=== PATIENT | male | born 1975 | race African-American/Black ===

== ENCOUNTER 2024-06-03 07:45 | Inpatient (IN) | payer OTHER ==
[~2024-06-03] VITALS: Ht 170.2 cm; Wt 68.2 kg
[2024-06-03] MEDS: ONDANSETRON 4 MG TABLET PO ONE (08:23)
[2024-06-03] MEDS: ACETAMINOPHEN 500 MG TABLET PO ONE (08:23)
[2024-06-03 08:35] LABS: BASOPHILS % (AUTO) 1.3 % (0.0-2.0); EOSINOPHILS % (AUTO) 3.8 % (1.0-6.0); HEMATOCRIT 42.5 % (41-53); HEMOGLOBIN 14.2 g/dL (13.5-17.5); LYMPHOCYTES # (AUTO) 1.2 K/uL (1.0-4.8); LYMPHOCYTES % (AUTO) 28.3 % (22.0-44.0); MEAN CORPUSCULAR HEMOGLOBIN 30.8 pg (26.0-34.0); MEAN CORPUSCULAR HGB CONC 33.5 G/dL (31.0-37.0); MEAN CORPUSCULAR VOLUME 92 fL (80-100); MONOCYTES # (AUTO) 0.4 K/uL (0.1-1.0); MONOCYTES % (AUTO) 10.3 % (2.0-9.0); NEUTROPHILS # (AUTO) 2.3 K/uL (1.8-7.7); NEUTROPHILS % (AUTO) 56.3 % (40.0-70.0); PLATELET COUNT (AUTO) 241 K/uL (150-450); RED BLOOD CELL COUNT(AUTO) 4.62 MIL/uL (4.50-5.90); RED CELL DISTRIBUTION WIDTH 14.1 % (11.5-14.5); WHITE BLOOD COUNT (AUTO) 4.1 K/uL (4.5-11.0)
[2024-06-03 08:54] LABS: ANION GAP 8 mmol/L (8-16); CALCIUM, TOTAL 9.1 mg/dL (8.8-10.5); CARBON DIOXIDE 28 mmol/L (22-29); CHLORIDE 105 mmol/L (98-107); CREATININE 0.93 mg/dL (0.60-1.30); GLOMERULAR FILTR. RATE CALC > 60 mL/min (>60); GLUCOSE,RANDOM 86 mg/dL (70-110); SODIUM SERUM 141 mmol/L (136-145); UREA NITROGEN, BLOOD 12 mg/dL (7-18)
[2024-06-03 08:58] LABS: ALANINE AMINOTRANSFERASE 18 U/L (12-78); ALBUMIN 3.5 g/dL (3.4-5.0); ALKALINE PHOSPHATASE 51 U/L (46-116); ASPARTATE AMINOTRANSFERASE 21 U/L (15-37); BILIRUBIN,TOTAL 0.4 mg/dL (0.1-1.0); TOTAL PROTEIN, SERUM 6.6 g/dL (6.4-8.2)
[2024-06-03 08:59] LABS: ALCOHOL, BLOOD (SERUM) < 3 mg/dL (0-10)
[2024-06-03] MEDS ORDERED: ONDANSETRON HCL 4 MG/2 ML VIAL IVP PRN (11:15)
[2024-06-03] MEDS ORDERED: ACETAMINOPHEN 325 MG TABLET PO PRN (11:15)
[2024-06-03 11:30] VITALS: BP 125/78; PULSE 100; RESP 18; TEMP 97.5; O2SAT 100
[2024-06-03] MEDS: VANCOMYCIN 1.25 GM/WATER(PEG) 250 ML IV ONE (12:38)
[2024-06-03] MEDS: HEPARIN SODIUM,PORCINE 5,000 UNITS/ML VIAL SQ SCH (16:11)
[2024-06-03 18:51] LABS: PH,URINE DRUG SCREEN 6.5 (5.0-8.0)
[2024-06-03 18:59] LABS: ALCOHOL, URINE DRUG SCREEN NEGATIVE (NEGATIVE); AMPHET/METH SCREEN,URINE POSITIVE (NEGATIVE); BARBITURATE SCREEN, URINE NEGATIVE (NEGATIVE); BENZODIAZEPINES SCREEN,URINE NEGATIVE (NEGATIVE); CANNABINOID SCREEN,URINE POSITIVE (NEGATIVE); COCAINE SCREEN,URINE NEGATIVE (NEGATIVE); METHADONE SCREEN, URINE NEGATIVE (NEGATIVE); OPIATE SCREEN,URINE NEGATIVE (NEGATIVE); PHENCYCLIDINE SCREEN,URINE NEGATIVE (NEGATIVE)
[2024-06-03 20:28] VITALS: BP 129/71; PULSE 80; RESP 17; TEMP 98.4; O2SAT 98
[2024-06-03] MEDS: HydrOXYzine PAMOATE 25 MG CAPSULE PO SCH (20:34)
[2024-06-03] MEDS: VANCOMYCIN 1.25 GM/WATER(PEG) 250 ML IV SCH (20:35)
[2024-06-04 07:46] LABS: BASOPHILS % (AUTO) 1.1 % (0.0-2.0); EOSINOPHILS % (AUTO) 3.9 % (1.0-6.0); HEMATOCRIT 42.8 % (41-53); HEMOGLOBIN 14.2 g/dL (13.5-17.5); LYMPHOCYTES % (AUTO) 26.3 % (22.0-44.0); MEAN CORPUSCULAR HEMOGLOBIN 30.6 pg (26.0-34.0); MEAN CORPUSCULAR HGB CONC 33.2 G/dL (31.0-37.0); MEAN CORPUSCULAR VOLUME 92 fL (80-100); MONOCYTES # (AUTO) 0.3 K/uL (0.1-1.0); MONOCYTES % (AUTO) 7.2 % (2.0-9.0); NEUTROPHILS # (AUTO) 2.4 K/uL (1.8-7.7); NEUTROPHILS % (AUTO) 61.5 % (40.0-70.0); PLATELET COUNT (AUTO) 211 K/uL (150-450); RED BLOOD CELL COUNT(AUTO) 4.65 MIL/uL (4.50-5.90); RED CELL DISTRIBUTION WIDTH 14.2 % (11.5-14.5); WHITE BLOOD COUNT (AUTO) 3.9 K/uL (4.5-11.0)
[2024-06-04 07:48] LABS: ANION GAP 10 mmol/L (8-16); CALCIUM, TOTAL 8.7 mg/dL (8.8-10.5); CARBON DIOXIDE 25 mmol/L (22-29); CHLORIDE 104 mmol/L (98-107); CREATININE 0.94 mg/dL (0.60-1.30); GLOMERULAR FILTR. RATE CALC > 60 mL/min (>60); GLUCOSE,RANDOM 81 mg/dL (70-110); POTASSIUM 3.8 mmol/L (3.5-5.1); SODIUM SERUM 139 mmol/L (136-145); UREA NITROGEN, BLOOD 12 mg/dL (7-18)
[2024-06-04 07:49] VITALS: BP 123/76; PULSE 104; RESP 20; TEMP 97.8; O2SAT 96
[2024-06-04] MEDS ORDERED: KETOROLAC TROMETHAMINE 15 MG/ML VIAL IVP PRN ×2 (11:00)
[2024-06-04] MEDS: HydrOXYzine PAMOATE 25 MG CAPSULE PO SCH (13:32)
[2024-06-04] MEDS: GABAPENTIN 100 MG CAPSULE PO SCH (15:06)
[2024-06-04 19:58] VITALS: BP 131/80; PULSE 77; RESP 20; TEMP 98.5; O2SAT 99
[2024-06-05 04:43] VITALS: BP 134/79; PULSE 74; RESP 18; TEMP 98.4; O2SAT 99
[2024-06-05] MEDS: RINGERS SOLUTION,LACTATED 500 ML IV ONE (08:00)
[2024-06-05] MEDS ORDERED: IOHEXOL 350 MG/ML 100 ML VIAL ONE (08:10)
[2024-06-05] MEDS ORDERED: SODIUM CHLORIDE 0.9% 100 ML ONE (08:10)
[2024-06-05 08:11] VITALS: BP 122/79; PULSE 67; RESP 19; TEMP 97.5; O2SAT 100
[2024-06-05] MEDS ORDERED: DOCU-385 PO (16:34)
[2024-06-05] MEDS ORDERED: POLY17PO47 PO (16:35)
[2024-06-05 16:38] VITALS: BP 101/77; PULSE 87; RESP 19; TEMP 97.5; O2SAT 99
[2024-06-05 19:37] VITALS: BP 133/77; PULSE 78; RESP 20; TEMP 99.3; O2SAT 100
== END 2024-06-05 20:45 | DRG 897 ==
LOC: EMS 07:45 → EDH 10:26 → 6S 11:05
PROVIDERS: ADMIT Internal Medicine; ATTEND Internal Medicine
DX: F15.93 Other stimulant use, unspecified with withdrawal (principal); F11.93 Opioid use, unspecified with withdrawal; F10.939 Alcohol use, unspecified with withdrawal, unspecified; Y90.9 Presence of alcohol in blood, level not specified; F17.210 Nicotine dependence, cigarettes, uncomplicated; F31.9 Bipolar disorder, unspecified; I10 Essential (primary) hypertension; E11.9 Type 2 diabetes mellitus without complications; F41.1 Generalized anxiety disorder; Z88.0 Allergy status to penicillin
CPT/HCPCS: 74177; 80048; 80076; 80307; 83735; 85025; 99285; G0480; J1644; J7050; J7120; Q0162

== ENCOUNTER 2024-10-06 17:46 | Inpatient (IN) | payer OTHER ==
[~2024-10-06] VITALS: Ht 170.2 cm; Wt 72.0 kg
[~2024-10-06 17:46] MED LIST: DOCU-385 PO; POLY17PO47 PO
[2024-10-06 18:27] LABS: BASOPHILS % (AUTO) 0.7 % (0.0-2.0); EOSINOPHILS % (AUTO) 6.1 % (1.0-6.0); HEMATOCRIT 45.7 % (41-53); LYMPHOCYTES # (AUTO) 1.2 K/uL (1.0-4.8); MEAN CORPUSCULAR HEMOGLOBIN 29.7 pg (26.0-34.0); MEAN CORPUSCULAR HGB CONC 32.8 G/dL (31.0-37.0); MEAN CORPUSCULAR VOLUME 91 fL (80-100); MONOCYTES # (AUTO) 0.4 K/uL (0.1-1.0); MONOCYTES % (AUTO) 8.5 % (2.0-9.0); NEUTROPHILS # (AUTO) 2.9 K/uL (1.8-7.7); NEUTROPHILS % (AUTO) 60.7 % (40.0-70.0); PLATELET COUNT (AUTO) 232 K/uL (150-450); RED BLOOD CELL COUNT(AUTO) 5.05 MIL/uL (4.50-5.90); RED CELL DISTRIBUTION WIDTH 14.5 % (11.5-14.5); WHITE BLOOD COUNT (AUTO) 4.8 K/uL (4.5-11.0)
[2024-10-06 18:39] LABS: ANION GAP 7 mmol/L (8-16); CALCIUM, TOTAL 8.9 mg/dL (8.8-10.5); CARBON DIOXIDE 29 mmol/L (22-29); CHLORIDE 109 mmol/L (98-107); CREATININE 1.14 mg/dL (0.60-1.30); GLOMERULAR FILTR. RATE CALC > 60 mL/min (>60); GLUCOSE,RANDOM 87 mg/dL (70-110); POTASSIUM 4.5 mmol/L (3.5-5.1); SODIUM SERUM 145 mmol/L (136-145); UREA NITROGEN, BLOOD 6 mg/dL (7-18)
[2024-10-06 18:45] LABS: ALCOHOL, BLOOD (SERUM) < 3 mg/dL (0-10)
[2024-10-06] MEDS ORDERED: ACETAMINOPHEN 325 MG TABLET PO PRN (20:45)
[2024-10-06] MEDS ORDERED: ONDANSETRON HCL 4 MG/2 ML VIAL IVP PRN (20:45)
[2024-10-06] MEDS ORDERED: HydrOXYzine HCL 25 MG TABLET PO PRN (20:45)
[2024-10-06] MEDS: DOCUSATE SODIUM 100 MG CAPSULE PO SCH (20:54)
[2024-10-06] MEDS: HEPARIN SODIUM,PORCINE 5,000 UNITS/ML VIAL SQ SCH (23:04)
[2024-10-07 00:46] VITALS: BP 149/90; PULSE 73; RESP 19; TEMP 97.5; O2SAT 99
[2024-10-07 05:33] VITALS: BP 123/89; PULSE 81; RESP 19; TEMP 97.2; O2SAT 99
[2024-10-07 05:45] LABS: PH,URINE DRUG SCREEN 6.5 (5.0-8.0)
[2024-10-07 05:54] LABS: ALCOHOL, URINE DRUG SCREEN NEGATIVE (NEGATIVE); AMPHET/METH SCREEN,URINE POSITIVE (NEGATIVE); BARBITURATE SCREEN, URINE NEGATIVE (NEGATIVE); BENZODIAZEPINES SCREEN,URINE NEGATIVE (NEGATIVE); CANNABINOID SCREEN,URINE POSITIVE (NEGATIVE); COCAINE SCREEN,URINE NEGATIVE (NEGATIVE); METHADONE SCREEN, URINE NEGATIVE (NEGATIVE); OPIATE SCREEN,URINE NEGATIVE (NEGATIVE); PHENCYCLIDINE SCREEN,URINE NEGATIVE (NEGATIVE)
[2024-10-07 07:20] VITALS: BP 147/97; PULSE 78; RESP 18; TEMP 97.8; O2SAT 98
[2024-10-07 07:48] LABS: BASOPHILS % (AUTO) 1.1 % (0.0-2.0); EOSINOPHILS % (AUTO) 7.4 % (1.0-6.0); HEMATOCRIT 43.3 % (41-53); HEMOGLOBIN 14.4 g/dL (13.5-17.5); LYMPHOCYTES # (AUTO) 1.2 K/uL (1.0-4.8); LYMPHOCYTES % (AUTO) 31.1 % (22.0-44.0); MEAN CORPUSCULAR HGB CONC 33.2 G/dL (31.0-37.0); MEAN CORPUSCULAR VOLUME 90 fL (80-100); MONOCYTES # (AUTO) 0.3 K/uL (0.1-1.0); MONOCYTES % (AUTO) 8.3 % (2.0-9.0); NEUTROPHILS % (AUTO) 52.1 % (40.0-70.0); PLATELET COUNT (AUTO) 230 K/uL (150-450); RED BLOOD CELL COUNT(AUTO) 4.79 MIL/uL (4.50-5.90); RED CELL DISTRIBUTION WIDTH 14.5 % (11.5-14.5); WHITE BLOOD COUNT (AUTO) 3.7 K/uL (4.5-11.0)
[2024-10-07 08:05] LABS: ANION GAP 10 mmol/L (8-16); CALCIUM, TOTAL 8.6 mg/dL (8.8-10.5); CARBON DIOXIDE 26 mmol/L (22-29); CHLORIDE 107 mmol/L (98-107); CREATININE 0.93 mg/dL (0.60-1.30); GLOMERULAR FILTR. RATE CALC > 60 mL/min (>60); GLUCOSE,RANDOM 85 mg/dL (70-110); POTASSIUM 3.8 mmol/L (3.5-5.1); SODIUM SERUM 143 mmol/L (136-145); UREA NITROGEN, BLOOD 7 mg/dL (7-18)
[2024-10-07] MEDS: AmLODIPine BESYLATE 5 MG TABLET PO SCH (11:06)
[2024-10-07] MEDS ORDERED: HALOPERIDOL 5 MG TABLET PO PRN (14:30)
[2024-10-07] MEDS: BENZTROPINE MESYLATE 0.5 MG TABLET PO SCH (15:49)
[2024-10-07] MEDS: HALOPERIDOL 5 MG TABLET PO SCH (15:50)
[2024-10-07] MEDS ORDERED: HydrOXYzine HCL 25 MG TABLET PO PRN (16:45)
[2024-10-07] MEDS: MIRTAZAPINE 15 MG TABLET PO SCH (20:31)
[2024-10-07 20:52] VITALS: BP 136/77; PULSE 79; RESP 19; TEMP 98.4; O2SAT 99
[2024-10-08 05:36] VITALS: BP 137/79; PULSE 71; RESP 19; TEMP 97.6; O2SAT 97
[2024-10-08 07:00] LABS: HEMATOCRIT 45.1 % (41-53); LYMPHOCYTES # (AUTO) 1.3 K/uL (1.0-4.8); LYMPHOCYTES % (AUTO) 30.8 % (22.0-44.0); MEAN CORPUSCULAR HGB CONC 33.3 G/dL (31.0-37.0); MEAN CORPUSCULAR VOLUME 90 fL (80-100); MONOCYTES # (AUTO) 0.4 K/uL (0.1-1.0); MONOCYTES % (AUTO) 8.2 % (2.0-9.0); NEUTROPHILS # (AUTO) 2.4 K/uL (1.8-7.7); PLATELET COUNT (AUTO) 227 K/uL (150-450); RED CELL DISTRIBUTION WIDTH 14.8 % (11.5-14.5); WHITE BLOOD COUNT (AUTO) 4.3 K/uL (4.5-11.0)
[2024-10-08 07:21] LABS: ANION GAP 7 mmol/L (8-16); CALCIUM, TOTAL 8.8 mg/dL (8.8-10.5); CARBON DIOXIDE 27 mmol/L (22-29); CHLORIDE 107 mmol/L (98-107); CREATININE 1.11 mg/dL (0.60-1.30); GLOMERULAR FILTR. RATE CALC > 60 mL/min (>60); GLUCOSE,RANDOM 83 mg/dL (70-110); SODIUM SERUM 141 mmol/L (136-145); UREA NITROGEN, BLOOD 7 mg/dL (7-18)
[2024-10-08 08:00] VITALS: BP 136/86; PULSE 72; RESP 18; TEMP 98.4; O2SAT 100
[2024-10-08] MEDS: POLYETHYLENE GLYCOL 3350 17 GM PACKET PO SCH (08:03)
[2024-10-08 16:18] VITALS: BP 129/81; PULSE 79; RESP 18; TEMP 98.7; O2SAT 100
[2024-10-08 20:06] VITALS: BP 131/84; PULSE 84; RESP 20; TEMP 97.8; O2SAT 100
[2024-10-08] MEDS: SENNOSIDES 8.6 MG TABLET PO SCH (21:17)
[2024-10-09 05:12] VITALS: BP 144/83; PULSE 72; RESP 20; TEMP 98.3; O2SAT 99
[2024-10-09 07:51] VITALS: BP 137/82; PULSE 79; RESP 20; TEMP 98.2; O2SAT 98
[2024-10-09] MEDS: SENNOSIDES 8.8 MG/5 ML SYRUP UDCUP PO ONE (14:35)
[2024-10-09] MEDS: MAGNESIUM CITRATE [LEMON] 300 ML ORAL SOLUTION PO ONE (14:35)
[2024-10-09] MEDS ORDERED: MIRT-89 PO (15:33)
[2024-10-09] MEDS ORDERED: HALO5TAB23 PO (15:33)
[2024-10-09] MEDS ORDERED: SENN-374 PO (15:33)
[2024-10-09] MEDS ORDERED: BENZ0.5T52 PO (15:33)
[2024-10-09] MEDS ORDERED: AMLO-257 PO (15:33)
[2024-10-09 16:46] VITALS: BP 129/85; PULSE 85; RESP 20; TEMP 98.8; O2SAT 98
[2024-10-09 20:14] VITALS: BP 136/73; PULSE 82; RESP 18; TEMP 97.8; O2SAT 99
== END 2024-10-09 20:55 | DRG 885 ==
LOC: EMS 17:46 → EDH 20:53 → 6S 10-07 00:32
PROVIDERS: ADMIT Internal Medicine; ATTEND Internal Medicine
DX: F25.1 Schizoaffective disorder, depressive type (principal); R45.851 Suicidal ideations; K59.09 Other constipation; E11.9 Type 2 diabetes mellitus without complications; F17.210 Nicotine dependence, cigarettes, uncomplicated; F31.9 Bipolar disorder, unspecified; F15.10 Other stimulant abuse, uncomplicated; F12.10 Cannabis abuse, uncomplicated; I10 Essential (primary) hypertension; F41.9 Anxiety disorder, unspecified; G89.4 Chronic pain syndrome; Z88.0 Allergy status to penicillin; Z91.51 Personal history of suicidal behavior
CPT/HCPCS: 80048; 80307; 83735; 85025; 99285; G0378; G0480; J1644

== ENCOUNTER 2024-12-29 23:39 | Inpatient (IN) | payer OTHER ==
[~2024-12-29] VITALS: Ht 170.2 cm; Wt 98.0 kg
[~2024-12-29 23:39] MED LIST changes: +AMLO-257 PO; +BENZ0.5T52 PO; +HALO5TAB23 PO; +MIRT-89 PO; +SENN-374 PO
[2024-12-30 01:08] LABS: BASOPHILS % (AUTO) 0.6 % (0.0-2.0); EOSINOPHILS % (AUTO) 4.2 % (1.0-6.0); HEMATOCRIT 40.6 % (41-53); HEMOGLOBIN 13.6 g/dL (13.5-17.5); LYMPHOCYTES # (AUTO) 1.6 K/uL (1.0-4.8); LYMPHOCYTES % (AUTO) 26.3 % (22.0-44.0); MEAN CORPUSCULAR HEMOGLOBIN 29.4 pg (26.0-34.0); MEAN CORPUSCULAR HGB CONC 33.4 G/dL (31.0-37.0); MEAN CORPUSCULAR VOLUME 88 fL (80-100); MONOCYTES # (AUTO) 0.5 K/uL (0.1-1.0); NEUTROPHILS # (AUTO) 3.6 K/uL (1.8-7.7); NEUTROPHILS % (AUTO) 60.9 % (40.0-70.0); PLATELET COUNT (AUTO) 264 K/uL (150-450); RED BLOOD CELL COUNT(AUTO) 4.61 MIL/uL (4.50-5.90); RED CELL DISTRIBUTION WIDTH 14.7 % (11.5-14.5); WHITE BLOOD COUNT (AUTO) 5.9 K/uL (4.5-11.0)
[2024-12-30 01:20] LABS: ANION GAP 9 mmol/L (8-16); CALCIUM, TOTAL 9.3 mg/dL (8.8-10.5); CARBON DIOXIDE 30 mmol/L (22-29); CHLORIDE 105 mmol/L (98-107); CREATININE 1.09 mg/dL (0.60-1.30); GLOMERULAR FILTR. RATE CALC > 60 mL/min (>60); GLUCOSE,RANDOM 92 mg/dL (70-110); POTASSIUM 3.6 mmol/L (3.5-5.1); SODIUM SERUM 144 mmol/L (136-145); UREA NITROGEN, BLOOD 8 mg/dL (7-18)
[2024-12-30 01:29] LABS: LACTIC ACID 0.6 mmol/L (0.4-2.0)
[2024-12-30 01:46] LABS: ALCOHOL, BLOOD (SERUM) < 3 mg/dL (0-10)
[2024-12-30 01:51] LABS: TROPONIN I-HIGH SENSITIVITY 5 ng/L (<76)
[2024-12-30 01:52] LABS: CREATINE KINASE, TOTAL ONLY 317 U/L (39-308); LIPASE 19 U/L (16-77)
[2024-12-30] MEDS ORDERED: ONDANSETRON HCL 4 MG/2 ML VIAL IVP PRN (06:00)
[2024-12-30] MEDS ORDERED: ZOLPIDEM TARTRATE 5 MG TABLET PO PRN (06:00)
[2024-12-30 06:16] VITALS: BP 136/111; PULSE 88; RESP 18; TEMP 97.8; O2SAT 96
[2024-12-30] MEDS: SODIUM CHLORIDE 0.9% 1,000 ML IV ONE (06:34)
[2024-12-30 07:25] LABS: APPEARANCE,URINE CLEAR (CLEAR); BILIRUBIN,URINE NEGATIVE (NEGATIVE); COLOR,URINE LIGHT YELLOW (YELLOW); GLUCOSE, URINE (UA) NEGATIVE (NEGATIVE); KETONES,URINE NEGATIVE (NEGATIVE); LEUKOCYTE ESTERASE ,URINE NEGATIVE (NEGATIVE); NITRATE,URINE NEGATIVE (NEGATIVE); OCCULT BLOOD,URINE NEGATIVE (NEGATIVE); PH,URINE 6.5 (5.0-8.0); PH,URINE DRUG SCREEN 6.5 (5.0-8.0); PROTEIN,URINE NEGATIVE (NEGATIVE); SPECIFIC GRAVITIY, URINE 1.013 (1.003-1.030); UROBILINOGEN,URINE <=1.0 mg/dL (<=1.0)
[2024-12-30 07:31] LABS: ALCOHOL, URINE DRUG SCREEN NEGATIVE (NEGATIVE); AMPHET/METH SCREEN,URINE POSITIVE (NEGATIVE); BARBITURATE SCREEN, URINE NEGATIVE (NEGATIVE); BENZODIAZEPINES SCREEN,URINE NEGATIVE (NEGATIVE); CANNABINOID SCREEN,URINE POSITIVE (NEGATIVE); COCAINE SCREEN,URINE NEGATIVE (NEGATIVE); METHADONE SCREEN, URINE NEGATIVE (NEGATIVE); OPIATE SCREEN,URINE NEGATIVE (NEGATIVE); PHENCYCLIDINE SCREEN,URINE NEGATIVE (NEGATIVE)
[2024-12-30 07:39] LABS: BACTERIA,URINE None Seen /HPF (None Seen); RBC,URINE None Seen /HPF (0-2); SQUAMOUS EPITHELIAL CELL,UR None Seen /LPF (None Seen); WBC,URINE None Seen /HPF (0-5)
[2024-12-30 07:44] VITALS: BP 141/96; PULSE 88; RESP 18; TEMP 97.9; O2SAT 97
[2024-12-30] MEDS: FAMOTIDINE 20 MG TABLET PO SCH (08:47)
[2024-12-30] MEDS: ACETAMINOPHEN 325 MG TABLET PO PRN (08:49)
[2024-12-30] MEDS ORDERED: OMEP20CA12 PO (12:34)
[2024-12-30] MEDS ORDERED: LISI20TA24 PO (12:34)
[2024-12-30] MEDS ORDERED: ATOR40TA71 PO (12:34)
[2024-12-30] MEDS: haloperidoL 5 MG TABLET PO SCH (13:30)
[2024-12-30] MEDS: MAGNESIUM HYDROXIDE SUSPENSION 30 ML UDCUP PO PRN (14:28)
[2024-12-30] MEDS: BENZTROPINE MESYLATE 0.5 MG TABLET PO SCH (14:28)
[2024-12-30 16:09] VITALS: BP 140/91; PULSE 80; RESP 18; TEMP 98.2; O2SAT 100
[2024-12-30 20:00] VITALS: BP 126/82; PULSE 80; RESP 19; TEMP 98.6; O2SAT 99
[2024-12-31 02:07] LABS: HEPATITIS C AB (EIA) Non Reactive (Non Reactive)
[2024-12-31 06:37] VITALS: BP 121/87; PULSE 66; RESP 18; TEMP 98.1; O2SAT 100
[2024-12-31 08:09] VITALS: BP 125/85; PULSE 87; RESP 16; TEMP 98.1; O2SAT 99
[2024-12-31] MEDS: BusPIRone HCL 5 MG TABLET PO SCH (12:49)
[2024-12-31 19:27] VITALS: BP 123/78; PULSE 75; RESP 18; TEMP 98.1; O2SAT 100
[2024-12-31] MEDS: haloperidoL 5 MG TABLET PO SCH (20:42)
[2024-12-31] MEDS: MIRTAZAPINE 30 MG TABLET PO SCH (20:42)
[2025-01-01 06:10] VITALS: BP 118/87; PULSE 62; RESP 18; TEMP 97.9; O2SAT 97
[2025-01-01 07:28] VITALS: BP 127/56; PULSE 65; RESP 18; TEMP 97.9; O2SAT 97
[2025-01-01 20:00] VITALS: BP 108/66; PULSE 80; RESP 18; TEMP 98.4; O2SAT 99
[2025-01-02 04:20] VITALS: BP 116/75; PULSE 77; RESP 18; TEMP 97.7; O2SAT 100
[2025-01-02 07:36] VITALS: BP 122/68; PULSE 82; RESP 20; TEMP 98.2; O2SAT 99
[2025-01-02] MEDS ORDERED: BUSP5TAB20 PO (13:19)
[2025-01-02] MEDS ORDERED: FAMO20 PO (13:20)
[2025-01-02] MEDS ORDERED: MIRT-149 PO (13:21)
[2025-01-02] MEDS ORDERED: ACET-2247 PO (13:23)
[2025-01-02] MEDS ORDERED: MAGN-169 PO (13:23)
== END 2025-01-02 20:11 | DRG 897 ==
LOC: EMS 23:41 → EDH 12-30 03:18 → 6S 12-30 03:59
PROVIDERS: ADMIT Internal Medicine; ATTEND Internal Medicine
DX: F15.23 Other stimulant dependence with withdrawal (principal); E11.9 Type 2 diabetes mellitus without complications; Z68.33 Body mass index [BMI] 33.0-33.9, adult; E66.9 Obesity, unspecified; F25.1 Schizoaffective disorder, depressive type; I10 Essential (primary) hypertension; F31.9 Bipolar disorder, unspecified; F12.10 Cannabis abuse, uncomplicated; Z88.0 Allergy status to penicillin; Z79.899 Other long term (current) drug therapy
CPT/HCPCS: 71045; 80048; 80307; 81001; 82550; 83605; 83690; 84484; 85025; 86803; 87340; 93005; 99285; G0480; J7030; 36415-L1; 36415-TC